=== PATIENT | male | born 1995 | race Caucasian/White ===

== ENCOUNTER 2020-09-08 21:45 | Emergency (ER) | payer MEDICAID, OTHER ==
[~2020-09-08] VITALS: Ht 182.9 cm; Wt 68.0 kg
--- NOTE | 2020-09-08 22:25 | NUR ---
angiography technologist in room to take x-ray.
--- NOTE | 2020-09-08 22:50 | NUR ---
Patient resting upright on bed, with his right foot elevated on a pillow, no acute distress noted.
[2020-09-08] MEDS ORDERED: HYDR-3980 PO (23:04)
[2020-09-08 23:28] VITALS: BP 124/80
--- NOTE | 2020-09-08 23:30 | NUR ---
Patient discharged to home in stable condition. Written and verbal after care instructions given. Patient verbalizes understanding of instructions. Stressed follow up or return to ER for worsening s/s. Patient ambulates with steady gait with assistance of crutches, CAM boot placed, gait training provided. V/S stable, paper Rx given, left ER with all belongings.
--- NOTE | 2020-09-09 10:29 | NUR ---
PATIENT'S MOTHER CAME TODAY TO REQUEST A COPY ON A CD OF THE X-RAY THAT WAS DONE ON HER SON YESTERDAY. SHE WAS ASKED TO FILL OUT AND SIGN A RELEASE OF RECORDS AND SHOW PROPER ID FOR HER AND HER SON, WHICH SHE DID AND IT WAS SCANNED IN [email or web address]
== END 2020-09-08 23:30 | disposition home or self-care (01) ==
LOC: ER 21:47
DX: S92.351A Displaced fracture of fifth metatarsal bone, right foot, initial encounter for closed fracture (principal); W51.XXXA Accidental striking against or bumped into by another person, initial encounter; Y93.67 Activity, basketball; Y92.89 Other specified places as the place of occurrence of the external cause; Y99.8 Other external cause status
CPT/HCPCS: 73630; A4663